=== PATIENT | female | born 1975 | race Caucasian/White ===

== ENCOUNTER 2016-10-16 12:37 | Emergency (ER) | payer BC ==
[~2016-10-16] VITALS: Ht 175.3 cm; Wt 134.1 kg
[2016-10-16 13:57] LABS: ASPARTATE AMINO TRANSFERASE 19 U/L (15-37); BLOOD UREA NITROGEN 11 mg/dL (7-18)
[2016-10-16] MEDS ORDERED: MAALOX/HYOSCYAMINE/LIDOCAINE 45 ML BTL PO ONE (14:30)
[2016-10-16] MEDS ORDERED: MAALOX/HYOSCYAMINE/LIDOCAINE 45 ML BTL ONE (14:36)
[2016-10-16 15:00] VITALS: BP 120/78
== END 2016-10-16 15:02 | disposition home or self-care (01) ==
LOC: ED 14:56
DX: R10.11 Right upper quadrant pain (principal); R10.13 Epigastric pain; R10.12 Left upper quadrant pain
CPT/HCPCS: 36415; 76700; 80053; 81003; 83690; 85025; 99285